=== PATIENT | male | born 1990 | race Asian ===

== ENCOUNTER 2019-12-13 07:58 | Day surgery (SDC) | payer OTHER ==
[2019-12-08 13:36] LABS: ABSOLUTE LYMPHOCYTES (AUTO) 1.9 10^3/uL (0.5-4.7); ABSOLUTE MONOCYTES (AUTO) 0.3 10^3/uL (0.1-1.4); ABSOLUTE NEUT (AUTO) 2.1 10^3/uL (1.7-8.2); BASOPHILS % (AUTO) 0.4 % (0-2); EOSINOPHILS % (AUTO) 0.8 % (0-6); HEMATOCRIT 40.2 % (37.9-51.0); HEMOGLOBIN 14.1 g/dL (13.5-17.0); LYMPHOCYTES % (AUTO) 43.7 % (13-45); MEAN CORPUSCULAR HEMOGLOBIN 31.2 pg (27.0-33.4); MEAN CORPUSCULAR HGB CONC 35.1 g/dL (32.0-36.0); MEAN CORPUSCULAR VOLUME 89 fl (80-97); MONOCYTES % (AUTO) 6.2 % (3-13); PLATELET COUNT 225 10^3/uL (150-450); RED BLOOD COUNT 4.52 10^6/uL (4.35-5.55); RED CELL DISTRIBUTION WIDTH 13.1 % (11.5-14.0); SEGMENTED NEUTROPHILS % (AUTO) 48.9 % (42-78); TOTAL CELLS COUNTED % (AUTO) 100 %; WHITE BLOOD COUNT 4.3 10^3/uL (4.0-10.5)
[2019-12-08 13:37] LABS: APPEARANCE,URINE CLEAR; BILIRUBIN,URINE NEGATIVE (NEGATIVE); COLOR,URINE YELLOW; GLUCOSE, URINE NEGATIVE (NEGATIVE); KETONES,URINE NEGATIVE (NEGATIVE); LEUKOCYTE ESTERASE,URINE TRACE (NEGATIVE); NITRITE,URINE NEGATIVE (NEGATIVE); PROTEIN,URINE NEGATIVE (NEGATIVE); URINE SPECIFIC GRAVITY 1.011; UROBILINOGEN,URINE NEGATIVE mg/dL (<2.0)
[2019-12-08 13:57] LABS: ANION GAP 9 (5-19); BLOOD UREA NITROGEN 13 mg/dL (7-20); CARBON DIOXIDE 28 mmol/L (22-30); CHLORIDE 100 mmol/L (98-107); GLUCOSE 87 mg/dL (75-110); POTASSIUM 4.2 mmol/L (3.6-5.0)
[~2019-12-13 07:58] MED LIST: CEFAZOLIN 2 GM/D5W RTU 2 GM/50 ML RTUPB IV PRN
[2019-12-13] MEDS ORDERED: HYDROMORPHONE HCL INJ/PF 2 MG/ML AMPULE ONE (09:05)
[2019-12-13] MEDS ORDERED: PROPOFOL INJ 200 MG/20 ML VIAL IV ONE (09:05)
[2019-12-13] MEDS ORDERED: MIDAZOLAM 2 MG/2 ML INJ ONE (09:05)
[2019-12-13] MEDS ORDERED: FENTANYL CITRATE INJ/PF 100 MCG/2 ML AMPUL ONE (09:05)
[2019-12-13] MEDS ORDERED: LIDOCAINE 2% INJ-PF (100 MG/5 ML) SYRINGE ONE (09:06)
[2019-12-13] MEDS ORDERED: CEFAZOLIN 2 GM/D5W RTU 2 GM/50 ML RTUPB IV ONE (09:21)
[2019-12-13] MEDS ORDERED: BUPIVACAINE HCL 0.5 % INJ/PF 30 ML SDV ONE (09:42)
[2019-12-13] MEDS ORDERED: DIPHENHYDRAMINE HCL 50 MG/ML VIAL IV PRN (09:55)
[2019-12-13] MEDS ORDERED: MEPERIDINE HCL/PF INJ 25 MG/1 ML DISP.SYRIN IV PRN (09:55)
[2019-12-13] MEDS ORDERED: FENTANYL CITRATE INJ/PF 100 MCG/2 ML AMPUL IV PRN ×3 (09:55)
[2019-12-13] MEDS ORDERED: PROMETHAZINE HCL INJ 25 MG/1 ML VIAL IV PRN ×2 (09:55)
[2019-12-13] MEDS ORDERED: HYDROMORPHONE HCL INJ/PF 2 MG/ML AMPULE IV PRN (09:56)
[2019-12-13] MEDS ORDERED: OXYCODONE-ACETAMINOPHEN 5-325 MG TABLET PO PRN (11:39)
[2019-12-13] MEDS ORDERED: MORPHINE SULFATE 10 MG/ML INJ IV PRN (11:39)
[2019-12-13] MEDS ORDERED: ONDANSETRON HCL INJ/PF 4 MG/2 ML SDV IV PRN (11:39)
--- NOTE | 2019-12-13 11:46 | Operative Report ---
Operative Report DATE OF SURGERY: 12/13/19 PREOPERATIVE DIAGNOSIS: Left thumb intra-articular metacarpal base fracture/Rol ando's fracture POSTOPERATIVE DIAGNOSIS: Same OPERATION: Open reduction internal fixation left thumb intra-articular metacarpal base fracture (Iglesia fracture) SURGEON: ROBEL FOSTER ANESTHESIA: GA COMPLICATIONS: None ESTIMATED BLOOD LOSS: Minimal PROCEDURE: Indication for above procedure: 29-year-old male a injury to his left thumb when a trailer fell onto his left hand resulting in an injury. Patient was seen at an outside emergency room where x-rays were consistent with a thumb metacarpal base fracture. Patient was sent to [place] at which point we discussed treatment options including operative versus nonoperative intervention after discussing risk and benefits decision was made to proceed with operative treatment. Procedure In Detail: Patient was seen and evaluated in the preoperative holding area. The LEFT upper extremity was initialized and marked. Patient received 2g of Ancef IV for bacterial prophylaxis. Patient was taken back to the operative room where transferred to the operative table and placed under general anesthesia. Once they were adequately anesthetized a nonsterile tourniquet was placed on the upper extremity. A surgical team debriefing was performed ensuring all instrumentation was available, the surgical procedure was discussed with possible concerns reviewed. The upper extremity was prepped with chlorhexidine and alcohol and draped in a sterile fashion. A timeout was done identifying correct patient, procedure and extremity everyone in attendance agree with this and verbalized no concerns. The extremity was exsanguinated the tourniquet was inflated to 250 mmHg. Curvilinear skin incision was made along the palmar-radial aspect of the thumb and CMC joint via a Alissa approach. Superficial nerve branches were identified and retracted. The thenar musculature was elevated from the thumb metacarpal base to expose the CMC joint. Transverse capsulotomy was made in order to evaluate the articular surface. Articular surface and fracture was irrigated with saline and hematoma evacuated. The articular surface was then reduced with 0.035 K wires anatomically under direct visualization. I then placed a 1.2 mm fully threaded cortex screw providing interfragmentary compression along the articular surface maintaining reduction. A 2.3 mm Kayleigh T plate was then utilized and precontoured. Initial fixation was obtained into the palmar-radial fragment into the palmar ulnar fragment providing further interfragmentary fixation. The plate was then aligned with the thumb metacarpal along its dorsal radial border. C arm was then obtained confirming appropriate placement of the plate and reduction of the fracture. Plate was then secured to the metacarpal shaft with fully threaded bicortical screws x3. The articular surface was then further fixated with an additional 2.3 mm locking screw. At completion C arm was obtained confirming acceptable reduction of the articular surface and alignment of the metacarpal. Under direct visualization the 1.2 millimeter screw was deep to the subchondral surface without intra-articular screw penetration. There is no crepitus with range of motion or CMC instability. Wound was then copiously irrigated with normal saline. Tourniquet was deflated and a peripheral bleeding was controlled with bipolar cautery until the wound was dry. Deep soft tissues were closed with interrupted 3-0 Vicryl suture. Subcutaneous tissues were closed with 4-0 Monocryl suture. Skin was closed with running subcuticular 4-0 Monocryl reinforced with Dermabond and Steri-Strips. Patient was placed in a thumb spica splint. Sponge counts, instrument counts, needle counts were correct. Patient was then awoken from anesthesia. Transferred from the operating room table to the operating room stretcher. There was no intraoperative complications patient tolerated procedure well stable to PACU. IMPLANTS: 2.3 mm Hopwood T plate Postop plan: Patient follow the office in 2 weeks at which point we will obtain radiographs. Patient will be casted for 4 weeks total and begin occupational therapy with supervised range of motion 4 weeks postoperatively and fit for a thermoplastic splint at that time.
--- NOTE | 2019-12-13 11:48 | Discharge Summary ---
Discharge Summary (SDC) - Discharge Final Diagnosis: Left thumb intra-articular metacarpal base fracture Date of Surgery: 12/13/19 Discharge Date: 12/13/19 Condition: Good Treatment or Instructions: Schedule Follow Up w/ Dr. Robe Christie @ [facility] to be seen in 10-14 days or as scheduled [place]: [place]: [place]: Ice and elevate Keep splint clean/dry/intact, do not remove. If your fingers become numb please unwrap the Rajendra wrap but leave the splint in place, if the sensation does not return within 30 minutes please return to the emergency department. May begin finger range of motion attempting to make full fist. Please use ibuprofen (Motrin or Advil) 600-800 mg every 8 hours as needed for pain or fever DO NOT TAKE w/ TORADOL may use once TORADOL complete. You may also use acetaminophen (Tylenol) 1000 mg every 4-6 hours as needed for pain or fever. Please be aware that many medications contain acetaminophen, do not e xceed a total of 1000 mg of acetaminophen every 6 hours. If ibuprofen and acetaminophen are not sufficient for your pain you may take the Percocet/[place]. Please be aware that the Percocet/[place] does contain Tylenol. Stool softener of choice when on pain medication. USE OF [id number] IBUPROFEN: Ibuprofen (Advil, Nuprin, Medipren, Motrin IB) is a medication for fever and pain control. In addition, it has anti- inflammatory effects which may be beneficial, especially in the treatment of injuries. It's best to take ibuprofen with food. Persons with ulcer disease or allergy to aspirin should notify their physician of this before taking ibuprofen. Ibuprofen can be given every four to six hours, for a total of four doses daily. Age Pain or fever dose Antiinflammatory dose 6-8 yr 200 mg (1 tab) 200 mg (1 tab) 9-11 yr 200 mg (1 tab) 200-400 mg (1-2 tab) 11-14 yr 200-400 mg (1-2 tab) 400 mg (2 tab) 15-adult 400 mg (2 tab) 600 mg (3 tab) ORAL NARCOTIC MEDICATION: You have been given a prescription for pain control. This medication is a narcotic. It's best taken with food, as nausea can result if taken on an empty stomach. Don't operate machinery or drive within six hours of taking this medication. Do not combine this medicine with alcohol, or with any medication which can cause sedation (such as cold tablets or sleeping pills) unless you get permission from the physician. Narcotics tend to cause constipation. If possible, drink plenty of fluids and eat a diet high in fiber and fruits. Please be aware that prescription narcotics also have the potential for abuse. People become addicted to these medications because of the general sense of wellbeing that they induce. This feeling along with a significant reduction in tension, anxiety, and aggression provides a stimulating seductive quality to these drugs. Once your pain is under control, we encourage you to discard your unused narcotics. Prescriptions: Oxycodone HCl/Acetaminophen [Percocet 5-325 mg Tablet] 1 tab PO Q6 PRN #25 tab PRN Reason: Discharge Diet: As Tolerated Respiratory Treatments at Home: Deep Breathing/Coughing, Incentive Spirometer Discharge Activity: No Lifting Over 10 Pounds, No Lifting/Push/Pulling Report the Following to Your Physician Immediately: Fever over 101 Degrees, Unusual Bleeding, Redness, Swelling, Warmth, Increased Soreness
[2019-12-13] MEDS ORDERED: OXYCODONE-ACETAMINOPHEN 5-325 MG TABLET ONE (12:23)
[2019-12-13] MEDS ORDERED: ONDANSETRON HCL INJ/PF 4 MG/2 ML SDV ONE (13:19)
[2019-12-13] MEDS ORDERED: GLYCOPYRROLATE 1 MG/5 ML VIAL ONE (13:19)
[2019-12-13] MEDS ORDERED: KETOROLAC TROMETHAMINE 60 MG/2 ML SDV ONE (13:19)
[2019-12-13] MEDS ORDERED: DEXAMETHASONE SOD PHOSPHATE INJ 4 MG/1 ML VIAL ONE (13:19)
--- NOTE | 2019-12-13 15:13 | RADIOLOGY REPORT (SQ) ---
EXAM DESCRIPTION: NO CHG FLUORO; FINGER LEFT IMAGES COMPLETED DATE/TIME: 12/13/2019 2:56 pm REASON FOR STUDY: ORIF LEFT THUMB ASSISTED WITH FLUORO IN OR COMPARISON: None. FLUOROSCOPY TIME: 46 seconds 6 Images saved to PACS TECHNIQUE: Intra-operative images acquired during surgical procedure to evaluate progress. NUMBER OF IMAGES: 6 LIMITATIONS: None. FINDINGS: Intra fluoroscopic images obtained to evaluate progress. Evidence of 1st metacarpal plate and screw fixation. Please see operative report for detailed description. IMPRESSION: IMAGE(S) OBTAINED DURING PROCEDURE. COMMENT: Quality ID [id number]: Final reports for procedures using fluoroscopy that document radiation exp osure indices, or exposure time and number of fluorographic images (if radiation exposure indices are not available) Please consult full operative report of the attending physician for description of the procedure. TECHNICAL DOCUMENTATION: JOB ID: [id number] 2010 [employer]- All Rights Reserved Reading location - IP/workstation name: [email or web address]
--- NOTE | 2019-12-13 15:13 | RADIOLOGY REPORT (SQ) ---
EXAM DESCRIPTION: NO CHG FLUORO; FINGER LEFT IMAGES COMPLETED DATE/TIME: 12/13/2019 2:56 pm REASON FOR STUDY: ORIF LEFT THUMB ASSISTED WITH FLUORO IN OR COMPARISON: None. FLUOROSCOPY TIME: 46 seconds 6 Images saved to PACS TECHNIQUE: Intra-operative images acquired during surgical procedure to evaluate progress. NUMBER OF IMAGES: 6 LIMITATIONS: None. FINDINGS: Intra fluoroscopic images obtained to evaluate progress. Evidence of 1st metacarpal plate and screw fixation. Please see operative report for detailed description. IMPRESSION: IMAGE(S) OBTAINED DURING PROCEDURE. COMMENT: Quality ID [id number]: Final reports for procedures using fluoroscopy that document radiation exp osure indices, or exposure time and number of fluorographic images (if radiation exposure indices are not available) Please consult full operative report of the attending physician for description of the procedure. TECHNICAL DOCUMENTATION: JOB ID: [id number] 2010 [employer]- All Rights Reserved Reading location - IP/workstation name: [email or web address]
[2019-12-13 17:39] VITALS: BP 126/71
== END 2019-12-13 13:45 | disposition home or self-care (01) ==
LOC: OROUT 07:58
PROVIDERS: ATTEND Orthopaedic Surgery
DX: S62.222A Displaced Rolando's fracture, left hand, initial encounter for closed fracture (principal); W17.89XA Other fall from one level to another, initial encounter; Y93.E6 Activity, residential relocation; Z03.818 Encounter for observation for suspected exposure to other biological agents ruled out
CPT/HCPCS: 36415; 85025; 87635; 80048; 81001; 73140; 01830; 26665; C1713 ×8; J2250; J3490 ×2; J1100; J1885; J3010; J2001; J1170; J2405; J2704; J0690; C9803